=== PATIENT | female | born 1965 | race Caucasian/White ===

== ENCOUNTER 2024-04-11 07:00 | Day surgery (SDC) | payer MEDICARE, OTHER ==
[2024-04-11] MEDS ORDERED: Lactated Ringers 1,000 ML IV ONE (07:11)
[2024-04-11] MEDS: Lactated Ringers 1,000 ML IV SCH (07:32)
[2024-04-11] MEDS: TETRACAINE 0.5% STERI-UNIT SOL OP ONE ×2 (07:37→08:07)
[2024-04-11] MEDS: Ak-Dilate OPHTHALMIC*** 1.065 ML, Cyclogyl 1% OPHTH SOL 1.065 ML, GATIFLOXACIN 0.5% OPH... OP ONE (07:38)
[2024-04-11] MEDS ORDERED: DEXMEDETOMIDINE 80 MCG/20ML-NS IV NR (09:15)
[2024-04-11] MEDS ORDERED: TRIAMCINOLONE 15 MG/ML INJ INTRAOP NR (09:15)
[2024-04-11] MEDS ORDERED: Zofran 4 MG/2 ML VIAL IV PRN (09:15)
[2024-04-11] MEDS ORDERED: BETADINE 5% OPHTHALMIC 30 ML OP NR (09:15)
[2024-04-11] MEDS ORDERED: VIGAMOX/BSS 0.15% SYR IO NR (09:15)
[2024-04-11] MEDS ORDERED: Epinephrine Preservative Free 1 MG/ML INTRAOP NR (09:15)
[2024-04-11] MEDS ORDERED: propofoL IV ONE (10:19)
[2024-04-11 10:44] VITALS: RESP 16
[2024-04-11] MEDS: ACETAZOLAMIDE 250 MG TABLET PO ONE (10:51)
[2024-04-11 10:55] VITALS: O2SAT 97
[2024-04-11 10:57] VITALS: BP 108/64; PULSE 72; TEMP 97.6
== END 2024-04-11 11:08 | disposition home or self-care (01) ==
LOC: SDC 07:00
PROVIDERS: ATTEND Ophthalmology
DX: H25.811 Combined forms of age-related cataract, right eye (principal); E11.9 Type 2 diabetes mellitus without complications
CPT/HCPCS: 82947; C1780; J0171; J2704; A9270-GY

== ENCOUNTER 2024-05-27 06:44 | Day surgery (SDC) | payer MEDICARE, OTHER ==
[2024-05-27] MEDS ORDERED: Lactated Ringers 1,000 ML IV ONE (07:25)
[2024-05-27] MEDS ORDERED: Lactated Ringers 1,000 ML IV SCH (07:30)
[2024-05-27] MEDS: Lactated Ringers 1,000 ML IV SCH (07:30)
[2024-05-27] MEDS: Ak-Dilate OPHTHALMIC*** 0.71 ML, Cyclogyl 1% OPHTH SOL 0.71 ML, GATIFLOXACIN 0.5% OPHTH... OP SCH (07:31)
[2024-05-27] MEDS: TETRACAINE 0.5% STERI-UNIT SOL OP ONE (07:32)
[2024-05-27 07:54] VITALS: RESP 16
[2024-05-27] MEDS ORDERED: TETRACAINE 0.5% STERI-UNIT SOL OP ONE (08:30)
[2024-05-27] MEDS ORDERED: TRIAMCINOLONE 15 MG/ML INJ INTRAOP NR (09:00)
[2024-05-27] MEDS ORDERED: DEXTENZA OP NR (09:00)
[2024-05-27] MEDS ORDERED: Epinephrine Preservative Free 1 MG/ML INTRAOP NR (09:00)
[2024-05-27] MEDS ORDERED: VIGAMOX/BSS 0.15% SYR IO NR (09:00)
[2024-05-27] MEDS ORDERED: BETADINE 5% OPHTHALMIC 30 ML OP NR (09:00)
[2024-05-27] MEDS ORDERED: Zofran 4 MG/2 ML VIAL IV PRN (09:00)
[2024-05-27] MEDS ORDERED: DEXMEDETOMIDINE 80 MCG/20ML-NS IV NR (09:00)
[2024-05-27] MEDS ORDERED: SUBLIMAZE 100 MCG/2 ML ONE (09:52)
[2024-05-27] MEDS ORDERED: Versed 2 MG/2 ML Injection ONE (09:52)
[2024-05-27] MEDS: ACETAZOLAMIDE 250 MG TABLET PO ONE (10:33)
[2024-05-27 10:37] VITALS: BP 104/67; PULSE 68; TEMP 97.7; O2SAT 95
== END 2024-05-27 10:48 | disposition home or self-care (01) ==
LOC: SDC 06:44
PROVIDERS: ATTEND Ophthalmology
DX: H25.812 Combined forms of age-related cataract, left eye (principal); E11.9 Type 2 diabetes mellitus without complications
CPT/HCPCS: 82947; C1780; J0171; J1096; J2250; J3010; A9270-GY